=== PATIENT | male | born 1945 | race Caucasian/White ===

== ENCOUNTER 2017-05-24 06:22 | Day surgery (SDC) | payer MEDICARE, BC ==
[~2017-05-24] VITALS: Ht 180.3 cm; Wt 77.1 kg
[~2017-05-24 06:22] MED LIST: ALBIPROI INH; ASPI81CH PO; ASPI81EC PO; ATEN50 PO; CALCAVITD PO; CENTRUM CARDIO PO; CINNAMON PO; Cinnamon500 MG PO; EZET10-20 PO; FENO145 PO; FENT50TP TOP; GLIM2 PO; HYDMOR2 PO; IBUP800 PO; LIRA0.6P SC; LISI5 PO; LORA10 PO; LUPRON DEPOT7.5 MG IM; METF500 PO; Megestrol Aceta20 MG PO; NIAC250ER PO; ONGLYZA5 MG PO; OXYC10ER PO; OXYC1TAB11 PO; PRED20 PO; PRED5 PO; Percocet 10-321 EACH PO; RANI150 PO; Simvastatin20 MG PO; TOCO400 PO; XGEVA120 MG/1.7 SC; XGEVA120 MG/1.7 SQ; ZYTIGA250 MG PO; Zofran Odt4 MG PO
== END 2017-05-24 10:38 | disposition home or self-care (01) ==
LOC: ORSCMMR 06:22 → ORD 11:15 → ORSCMMR 11:15
PROVIDERS: Surgery
PROC: 0JH60WZ Insertion of Totally Implantable Vascular Access Device into Chest Subcutaneous Tissue and Fascia, Open Approach (ICD-10-PCS; principal; 2017-05-24 08:00)
DX: C61 Malignant neoplasm of prostate (principal); C79.51 Secondary malignant neoplasm of bone; E11.9 Type 2 diabetes mellitus without complications; E78.5 Hyperlipidemia, unspecified; G47.33 Obstructive sleep apnea (adult) (pediatric); J45.909 Unspecified asthma, uncomplicated; I10 Essential (primary) hypertension; Z79.82 Long term (current) use of aspirin; Z79.4 Long term (current) use of insulin; Z79.899 Other long term (current) drug therapy
CPT/HCPCS: 77001; 82947; C1788; J0690; J1100; J1642; J1885; J2405; J7120

== ENCOUNTER 2017-06-08 12:08 | Day surgery (SDC) | payer MEDICARE, BC | END 2017-06-08 15:52 | disposition home or self-care (01) | LOC: ATC 12:08 | DX: C61 Malignant neoplasm of prostate (principal); C79.51 Secondary malignant neoplasm of bone; D63.0 Anemia in neoplastic disease; E86.0 Dehydration; Z87.891 Personal history of nicotine dependence; E11.9 Type 2 diabetes mellitus without complications; E78.5 Hyperlipidemia, unspecified; G47.33 Obstructive sleep apnea (adult) (pediatric); E78.00 Pure hypercholesterolemia, unspecified; J45.909 Unspecified asthma, uncomplicated; I10 Essential (primary) hypertension | CPT/HCPCS: 96360; J1642; J7030 ==

== ENCOUNTER 2017-06-09 00:08 | Day surgery (SDC) | payer MEDICARE, BC | END 2017-06-09 11:49 | disposition home or self-care (01) | LOC: ATC 00:08 | DX: C61 Malignant neoplasm of prostate (principal); E78.5 Hyperlipidemia, unspecified; E11.9 Type 2 diabetes mellitus without complications; I10 Essential (primary) hypertension; E78.00 Pure hypercholesterolemia, unspecified | CPT/HCPCS: 96360; J1642; J7030 ==

== ENCOUNTER 2017-06-11 13:15 | Day surgery (SDC) | payer MEDICARE, BC ==
[2017-06-11 10:04] LABS: Hemoglobin 7.5 g/dL (13.5-17.5); Mean Corpuscular HGB Conc 32.6 g/dL (31.5-36.5); Mean Corpuscular Volume 86 fL (80-100); Mean Platelet Volume 9.7 fL (9.1-12.4); NRBC ABSOLUTE 0.74 K/mm3 (0.00-0.02); NRBC Auto 8.8 /100 WBC (0.0-0.2); Platelet Count 102 K/mm3 (150-400); RDW Coefficient Variation 17.2 % (11.7-14.2); RDW Standard Deviation 53.7 fL (35.1-46.3); Red Blood Cell Count 2.68 M/mm3 (4.30-5.90); White Blood Cell Count 8.41 K/mm3 (4.00-11.30)
[2017-06-11 10:29] LABS: Alanine Aminotransfer (ALT/SGP 18 U/L (12-78); Alk Phos 217 U/L (50-136); Anion Gap 10 mmol/L (6-16); Aspartate Aminotrans (AST/SGOT 19 U/L (12-37); Bilirubin, Total 0.4 mg/dL (0.1-1.0); Blood Urea Nitrogen 13 mg/dL (8-24); CO2, Blood 20 mmol/L (21-32); Calcium, Blood 8.5 mg/dL (8.5-10.1); Chloride, Blood 115 mmol/L (98-108); Creatinine, Blood 0.54 mg/dL (0.60-1.20); Globulin, Blood 3.1 g/dL (2.2-4.0); Glomerular Filtration Rate >60 (60-); Glucose, Blood 197 mg/dL (70-99); Potassium, Blood 3.3 mmol/L (3.5-5.5); Sodium, Blood 145 mmol/L (136-145); Total Protein, Blood 6.1 g/dL (6.4-8.2)
[2017-06-11 10:41] LABS: BAND PERCENT MAN 20 % (0-8); BASOPHILS ABSOLUTE MAN 0.08 K/mm3 (0.00-0.23); BASOPHILS PERCENT MAN 1 % (0-2); EOSINOPHILS ABSOLUTE MAN 0.08 K/mm3 (0.00-0.68); EOSINOPHILS PERCENT MAN 1 % (0-6); LYMPHOCYTES ABSOLUTE MAN 0.33 K/mm3 (0.84-5.20); LYMPHOCYTES PERCENT MAN 4 % (21-46); METAMYELOCYTE ABSOLUTE MAN 0.25 K/mm3 (0.00-0.00); METAMYELOCYTE PERCENT MAN 3 % (0-0); MONOCYTES ABSOLUTE MAN 0.16 K/mm3 (0.16-1.47); MONOCYTES PERCENT MAN 2 % (4-13); NEUTROPHILS ABSOLUTE MAN 7.14 K/mm3 (1.96-9.15); PROMYELOCYTE ABSOLUTE MAN 0.33 K/mm3 (0.00-0.00); PROMYELOCYTE PERCENT MAN 4 % (0-0); SEG NEUTROPHILS PERCENT MAN 65 % (41-73); TOTAL CELLS COUNTED 100
== END 2017-06-11 18:01 | disposition home or self-care (01) ==
LOC: LAB 13:15 → ATC 13:15 → LAB FUT 05-31 13:10 → EDSTATUS 05-31 13:10
PROVIDERS: Internal Medicine Hematology & Oncology
PROC: 30233N1 Transfusion of Nonautologous Red Blood Cells into Peripheral Vein, Percutaneous Approach (ICD-10-PCS; principal; 2017-06-11)
DX: C61 Malignant neoplasm of prostate (principal); C79.51 Secondary malignant neoplasm of bone; D63.0 Anemia in neoplastic disease; E86.0 Dehydration
CPT/HCPCS: 36415; 36430; 80053; 84153; 85025; 86850; 86900; 86901; 86923; J1642; P9016

== ENCOUNTER → 2017-06-12 | Outpatient (CLI) | payer MEDICARE, BC ==
[~2017-06-12] MED LIST changes: +ELIQUIS5 MG PO
== END | disposition home or self-care (01) ==
LOC: PLD 07:41 → LAB SHORT 07:41
DX: D22.5 Melanocytic nevi of trunk (principal)
CPT/HCPCS: 88305

== ENCOUNTER 2017-06-28 11:11 | Day surgery (SDC) | payer MEDICARE, BC ==
[2017-06-28 09:41] LABS: Hematocrit 26.5 % (37.0-53.0); Hemoglobin 8.5 g/dL (13.5-17.5); Mean Corpuscular HGB 29.4 pg (26.0-34.0); Mean Corpuscular HGB Conc 32.1 g/dL (31.5-36.5); Mean Corpuscular Volume 92 fL (80-100); Mean Platelet Volume 10.5 fL (9.1-12.4); NRBC ABSOLUTE 0.05 K/mm3 (0.00-0.02); NRBC Auto 0.6 /100 WBC (0.0-0.2); Platelet Count 111 K/mm3 (150-400); RDW Coefficient Variation 18.8 % (11.7-14.2); Red Blood Cell Count 2.89 M/mm3 (4.30-5.90); White Blood Cell Count 7.76 K/mm3 (4.00-11.30)
[~2017-06-28 11:11] MED LIST changes: -ELIQUIS5 MG PO
== END 2017-06-28 17:15 | disposition home or self-care (01) ==
LOC: ATC 11:11 → EDSTATUS 06-11 12:50 → LAB FUT 06-11 12:50
PROVIDERS: Internal Medicine Hematology & Oncology
PROC: 30233N1 Transfusion of Nonautologous Red Blood Cells into Peripheral Vein, Percutaneous Approach (ICD-10-PCS; principal; 2017-06-28)
DX: C61 Malignant neoplasm of prostate (principal); C79.51 Secondary malignant neoplasm of bone; D63.0 Anemia in neoplastic disease; E86.0 Dehydration; E11.9 Type 2 diabetes mellitus without complications; E78.5 Hyperlipidemia, unspecified; G47.33 Obstructive sleep apnea (adult) (pediatric); Z87.891 Personal history of nicotine dependence; Z79.899 Other long term (current) drug therapy; Z79.84 Long term (current) use of oral hypoglycemic drugs; Z79.82 Long term (current) use of aspirin
CPT/HCPCS: 36415; 36430; 85027; 86850; 86900; 86901; 86923; J1642; P9016

== ENCOUNTER 2017-07-24 07:34 | Day surgery (SDC) | payer MEDICARE, BC ==
[2017-07-23 08:03] LABS: Hematocrit 24.9 % (37.0-53.0); Hemoglobin 7.8 g/dL (13.5-17.5); Mean Corpuscular HGB 29.5 pg (26.0-34.0); Mean Corpuscular HGB Conc 31.3 g/dL (31.5-36.5); Mean Corpuscular Volume 94 fL (80-100); Mean Platelet Volume 10.2 fL (9.1-12.4); NRBC ABSOLUTE 0.43 K/mm3 (0.00-0.02); Platelet Count 145 K/mm3 (150-400); RDW Coefficient Variation 20.3 % (11.7-14.2); RDW Standard Deviation 68.6 fL (35.1-46.3); Red Blood Cell Count 2.64 M/mm3 (4.30-5.90); White Blood Cell Count 8.65 K/mm3 (4.00-11.30)
== END 2017-07-24 10:14 | disposition home or self-care (01) ==
LOC: ATC 07:34
PROVIDERS: Internal Medicine Hematology & Oncology
DX: C61 Malignant neoplasm of prostate (principal); C79.51 Secondary malignant neoplasm of bone; D63.0 Anemia in neoplastic disease; E11.9 Type 2 diabetes mellitus without complications; G47.33 Obstructive sleep apnea (adult) (pediatric); J45.909 Unspecified asthma, uncomplicated; E78.00 Pure hypercholesterolemia, unspecified; Z79.84 Long term (current) use of oral hypoglycemic drugs
CPT/HCPCS: 36415; 36430; 85027; 86850; 86900; 86901; 86923; J1642; J7030; P9016

== ENCOUNTER 2017-08-22 07:14 | Day surgery (SDC) | payer MEDICARE, BC | END 2017-08-22 15:30 | disposition home or self-care (01) | LOC: ATC 07:14 | PROC: 30233N1 Transfusion of Nonautologous Red Blood Cells into Peripheral Vein, Percutaneous Approach (ICD-10-PCS; principal; 2017-08-22) | DX: D63.0 Anemia in neoplastic disease (principal); C61 Malignant neoplasm of prostate; C79.51 Secondary malignant neoplasm of bone | CPT/HCPCS: 36430; 86850; 86900; 86901; 86923; J1642; J7030; P9016 ==

== ENCOUNTER 2017-10-12 00:10 | Day surgery (SDC) | payer MEDICARE, BC | END 2017-10-12 15:23 | disposition home or self-care (01) | LOC: ATC 00:10 | DX: C61 Malignant neoplasm of prostate (principal); Z87.891 Personal history of nicotine dependence; C79.51 Secondary malignant neoplasm of bone; D63.0 Anemia in neoplastic disease | CPT/HCPCS: 96360; J1642; J7030 ==

== ENCOUNTER → 2017-12-17 | Outpatient (CLI) | payer MEDICARE, BC ==
[~2017-12-17] MED LIST changes: +ELIQUIS5 MG PO
[2017-12-17 15:10] LABS: BASOPHILS ABSOLUTE AUTO 0.02 K/mm3 (0.00-0.23); BASOPHILS PERCENT AUTO 0 % (0-2); EOSINOPHILS ABSOLUTE AUTO 0.01 K/mm3 (0.00-0.68); EOSINOPHILS PERCENT AUTO 0 % (0-6); Hematocrit 24.3 % (37.0-53.0); Hemoglobin 7.3 g/dL (13.5-17.5); IMMATURE GRAN ABSOLUTE AUTO 0.22 K/mm3 (0.00-0.10); IMMATURE GRAN PERCENT AUTO 3 % (0-1); LYMPHOCYTES ABSOLUTE AUTO 0.19 K/mm3 (0.84-5.20); LYMPHOCYTES PERCENT AUTO 3 % (21-46); MONOCYTES ABSOLUTE AUTO 0.38 K/mm3 (0.16-1.47); MONOCYTES PERCENT AUTO 5 % (4-13); Mean Corpuscular HGB 31.2 pg (26.0-34.0); Mean Corpuscular Volume 104 fL (80-100); Mean Platelet Volume 9.8 fL (9.1-12.4); NEUTROPHILS ABSOLUTE AUTO 6.35 K/mm3 (1.96-9.15); NEUTROPHILS PERCENT AUTO 89 % (41-73); NRBC ABSOLUTE 0.05 K/mm3 (0.00-0.02); NRBC Auto 0.7 /100 WBC (0.0-0.2); Platelet Count 163 K/mm3 (150-400); RDW Coefficient Variation 19.4 % (11.7-14.2); RDW Standard Deviation 71.6 fL (35.1-46.3); Red Blood Cell Count 2.34 M/mm3 (4.30-5.90); White Blood Cell Count 7.17 K/mm3 (4.00-11.30)
== END | disposition home or self-care (01) ==
LOC: LAB 14:39 → LAB SHORT 14:39
PROVIDERS: Internal Medicine Hematology & Oncology
DX: C61 Malignant neoplasm of prostate (principal); C79.51 Secondary malignant neoplasm of bone; D63.0 Anemia in neoplastic disease
CPT/HCPCS: 85025

== ENCOUNTER 2017-12-18 07:04 | Day surgery (SDC) | payer MEDICARE, BC ==
[~2017-12-18 07:04] MED LIST changes: -ELIQUIS5 MG PO
[2017-12-18] MEDS ORDERED: ELIQUIS5 MG PO (08:38)
== END 2017-12-18 22:44 | disposition home or self-care (01) ==
LOC: ATC 07:04
DX: C61 Malignant neoplasm of prostate (principal); C79.51 Secondary malignant neoplasm of bone; D63.0 Anemia in neoplastic disease; Z87.891 Personal history of nicotine dependence; E11.9 Type 2 diabetes mellitus without complications; E78.5 Hyperlipidemia, unspecified; J45.909 Unspecified asthma, uncomplicated
CPT/HCPCS: 36430; 86850; 86900; 86901; 86923; J1642; J7030; P9016

== ENCOUNTER 2018-01-24 16:04 | Emergency (ER) | payer MEDICARE, BC ==
[~2018-01-24] VITALS: Ht 180.3 cm; Wt 77.6 kg
[~2018-01-24 16:04] MED LIST changes: +ELIQUIS5 MG PO
[2018-01-24] MEDS ORDERED: HYDMOR2 PO (17:32)
== END 2018-01-24 17:38 | disposition home or self-care (01) ==
LOC: ER 16:04
DX: M25.519 Pain in unspecified shoulder (principal); E11.9 Type 2 diabetes mellitus without complications; I10 Essential (primary) hypertension; E78.00 Pure hypercholesterolemia, unspecified; K21.9 Gastro-esophageal reflux disease without esophagitis; Z91.048 Other nonmedicinal substance allergy status; Z79.899 Other long term (current) drug therapy; Z79.52 Long term (current) use of systemic steroids; Z79.84 Long term (current) use of oral hypoglycemic drugs; Z87.891 Personal history of nicotine dependence
CPT/HCPCS: 96372; 99282; J1170

== ENCOUNTER 2018-02-07 15:50 | Emergency (ER) | payer MEDICARE, BC ==
[~2018-02-07] VITALS: Ht 180.3 cm; Wt 78.5 kg
== END 2018-02-07 17:20 | disposition home or self-care (01) ==
LOC: ER 15:50
DX: G89.3 Neoplasm related pain (acute) (chronic) (principal); C61 Malignant neoplasm of prostate; C79.51 Secondary malignant neoplasm of bone; I10 Essential (primary) hypertension; E11.9 Type 2 diabetes mellitus without complications; K21.9 Gastro-esophageal reflux disease without esophagitis; E78.5 Hyperlipidemia, unspecified; Z91.048 Other nonmedicinal substance allergy status; Z79.899 Other long term (current) drug therapy; Z79.52 Long term (current) use of systemic steroids; Z79.01 Long term (current) use of anticoagulants; Z79.84 Long term (current) use of oral hypoglycemic drugs
CPT/HCPCS: 99282